=== PATIENT | male | born 1985 ===

== ENCOUNTER 2018-10-09 11:26 | Observation (INO) | payer MEDICAID ==
[2018-10-09] MEDS ORDERED: Magnesium Sulfate 2 gm/50 ml 2 GM/50 ML BAG IVPB ONE (11:31)
--- NOTE | 2018-10-09 11:31 | ED PDOC ---
Arrival/HPI - General Time Seen by Provider: 10/09/18 11:26 - History of Present Illness Narrative History of Present Illness (Text): 10/09/18 11:32 Patient is a 33 y/o M with hx of asthma, hx of intubation last at age 15, presenting with wheezing. Reports 4 day history of uri with productive cough and chills. Reports taking sudafed and benadryl without relief. Reports worsening sob starting last night. Reports using a "box" of nebulizers (approximately 40) without relief. Called 911 this morning who gave patient additional neb and solumedrol 125mg. Reports some improvement. Family/Social History Family/Social History: No Known Family HX Allergies/Home Meds Allergies/Adverse Reactions: Allergies diphenhydramine [From Benadryl Allergy] Allergy (Verified 10/09/18 11:30) ANAPHYLAXIS Review of Systems - Review of Systems Constitutional: Fevers. absent: Fatigue, Weight Change ENT: Rhinorrhea Respiratory: SOB, Cough, Sputum, Wheezing Cardiovascular: absent: Chest Pain, Palpitations, Edema, Calf Pain, DONOHUE, Orthopnea, Syncope Gastrointestinal: absent: Abdominal Pain, Constipation, Diarrhea, Nausea, Vomiting Genitourinary Male: absent: Dysuria Musculoskeletal: Arthralgias Skin: absent: Rash, Pruritis Neurological: absent: Headache, Dizziness, Focal Weakness, Gait Changes, Speech Changes Psychiatric: absent: Anxiety, Depression Physical Exam - Systems Exam Head: Present: Atraumatic, Normocephalic Pupils: Present: PERRL Extroacular Muscles: Present: EOMI Conjunctiva: Present: Normal Mouth: Present: Moist Mucous Membranes Nose (Internal): Present: Rhinorrhea Neck: Present: Normal Range of Motion. No: Meningeal Signs, MIDLINE TENDERNESS Respiratory/Chest: Present: Wheezes (expiratory), Other (speaking in complete sentences). No: Respiratory Distress, Accessory Muscle Use Cardiovascular: Present: Tachycardic Abdomen: No: Tenderness, Distention, Rebound, Guarding Upper Extremity: Present: Normal Inspection Lower Extremity: Present: Normal Inspection. No: Edema Psychiatric: Present: Alert, Oriented x 3, Normal Insight, Normal Concentration Medical Decision Making ED Course and Treatment: 10/09/18 11:35 Patient presenting with wheezing and sob. Will give duonebs and Mg. Will r/o pneumonia, assess for flu and reevaluate. 10/09/18 11:47 EKG shows sinus tachycardia at 135bpm with no st changes 10/09/18 12:36 Cxray negative 10/09/18 16:51 CTA ordered because patient has persistent tachycardia which he attributes to excessive albuterol use. CTA negative for PE 10/09/18 17:11 Persistently wheezing and tachycardic after 2L IVF. Accepted by Dr. Sorensen Disposition/Present on Arrival - Present on Arrival Any Indicators Present on Arrival: No - Disposition Have Diagnosis and Disposition been Completed?: Yes Diagnosis: Hepatic steatosis, Asthma, Tachycardia Disposition: HOSPITALIZED Disposition Time: 16:56 Patient Plan: Observation Patient Problems: Current Active Problems Problem Status Onset Hepatic steatosis Acute Asthma Acute Tachycardia Acute Condition: FAIR
[2018-10-09] MEDS ORDERED: Sodium Chloride 0.9% 1,000 ML IV STA ×2 (11:36→15:05)
[2018-10-09] MEDS: Albuterol-Ipratrop 3 mg / 0.5 (3 ml) UD IH SCH ×2 (12:10→14:34)
--- NOTE | 2018-10-09 12:18 | RAD ---
Date of service: 10/09/2018 HISTORY: cough COMPARISON: No prior. TECHNIQUE: 1 view obtained. FINDINGS: LUNGS: No active pulmonary disease. PLEURA: No significant pleural effusion identified, no pneumothorax apparent. CARDIOVASCULAR: No aortic atherosclerotic calcification present. Normal cardiac size. No pulmonary vascular congestion. OSSEOUS STRUCTURES: No significant abnormalities. VISUALIZED UPPER ABDOMEN: Normal. OTHER FINDINGS: None. IMPRESSION: No active disease.
[2018-10-09 12:25] LABS: BASO # 0.04 K/mm3 (0.0-2.0); BASO % 0.7 % (0.0-3.0); EOS # 0.2 (0.0-0.7); EOS % 2.6 % (1.5-5.0); HEMOGLOBIN 15.5 g/dL (14.0-18.0); LYMPH # 1.2 (1.2-3.4); LYMPH % 20.4 % (22.0-35.0); MEAN CELL VOLUME 84.6 fl (80.0-105.0); MEAN CORPUSCULAR HGB CONC 34.3 g/dl (31.0-37.0); MEAN PLATELET VOLUME 9.9 fl (7.0-11.0); MONO # 0.5 (0.1-0.6); MONO % 8.4 % (1.0-6.0); RBC 5.34 10^6/uL (3.5-6.1); RED CELL DISTRIBUTION WIDTH 13.2 % (11.5-14.5)
[2018-10-09 12:29] LABS: ALB/GLOB RATIO 1.4 (1.1-1.8); ALBUMIN 4.7 g/dL (3.0-4.8); ALT/SGPT 175 U/L (7-56); AST/SGOT 77 U/L (17-59); BLOOD UREA NITROGEN 9 mg/dL (7-21); CALCIUM 9.4 mg/dL (8.4-10.5); GFR NON-AFRICAN AMERICAN > 60
--- NOTE | 2018-10-09 16:52 | CT ---
Date of service: 10/09/2018 PROCEDURE: CT Chest with contrast (Pulmonary Angiogram) HISTORY: tachycardic,, cp COMPARISON: October 09, 2018. Single-view chest TECHNIQUE: Axial computed tomography images were obtained of the chest in the pulmonary arterial phase of enhancement. Coronal and sagittal reformatted images were created and reviewed. Intravenous contrast dose: 150 cc Omnipaque 350. Mean Hounsfield value in the main pulmonary artery: 227.01 Radiation dose: Total exam DLP = 550.60 mGy-cm. This CT exam was performed using one or more of the following dose reduction techniques: Automated exposure control, adjustment of the mA and/or kV according to patient size, and/or use of iterative reconstruction technique. FINDINGS: PULMONARY ARTERIES: Unremarkable. No pulmonary embolism. AORTA: No acute findings. No thoracic aortic aneurysm. No atherosclerotic calcification or mural plaque present. LUNGS: Unremarkable. No nodule, mass or pulmonary consolidation. PLEURAL SPACES: Unremarkable. No effusion or pneumothorax. HEART: Unremarkable. No cardiomegaly. No significant pericardial effusion. LYMPH NODES: No lymphadenopathy. BONES, CHEST WALL: Unremarkable. No fracture or destructive lesion OTHER FINDINGS: Profound hepatic steatosis, the liver however is incompletely visible. IMPRESSION: Unremarkable CT pulmonary angiogram. No pulmonary embolus.
--- NOTE | 2018-10-09 17:06 | CARD ---
APPROVED REPORT Date of service: 10/09/2018 EKG Measurement Heart [id number] CT [id number] [id number] <Conclusion> Sinus tachycardia Otherwise normal ECG
[2018-10-09] MEDS ORDERED: Albuterol-Ipratrop 3 mg / 0.5 (3 ml) UD IH STA (17:11)
[2018-10-09] MEDS ORDERED: Levalbuterol 1.25 MG/3 ML Inhal Soln UD IH PRN (18:19)
--- NOTE | 2018-10-09 18:35 | CP.PCM.HP ---
<Sergei Peñaloza - Last Filed: 10/09/18 19:00> History of Present Illness - History of Present Illness History of Present Illness: PGY-1 Medicine H&P for Dr. Gibbons CC: Asthma exacerbation Patient is a 33 year old obese male with a past medical history of asthma and current tobacco use presenting with shortness of breath. Patient states that he has been short of breath for the past 4 days that required him to be using his Albuterol nebulizer throughout the day and waking him up at night. He also states that for the past for days he has been having a cough, runny nose, watery eyes, and muscle aches. He describes the cough to be productive with green sputum. Patient had been using his nebulizer many times and took Claritin with not much relief. He states that he was diagnosed with Asthma since he was a child and had a history of being intubated at age 15. He states that he was ad mitted for asthma exacerbation 4-5 times in the last 18 months at [facility] in the [facility]. He states that he used to be on Breo which helped control his asthma but his current PMD discontinued it because his asthma was under control. He denies recent travel or sick contacts. He further denies fevers, chills, chest pain, abdominal pain, nausea, vomiting, diarrhea, or urinary symptoms. 12 system ROS reviewed and negative except mentioned in HPI. PMHx: Asthma, obesity, and tobacco abuse PSHx: Ganglion cyst removal on left hand. Allergies: Benadryl-anaphylaxis. Family Hx: Mother has asthma and HTN. Brother and sister have asthma. Social Hx: Smoked 1 PPD since age 14, currently smokes 10 cigarettes every 3 days. Denies alcohol and drug use. 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 PMD: Dr. Burroughs in [facility] but is switching due change of insurance Present on Admission - Present on Admission Any Indicators Present on Admission: No History of DVT/PE: No History of Uncontrolled Diabetes: No Urinary Catheter: No Decubitus Ulcer Present: No Past Patient History - Past Social History Smoking Status: Light Smoker < 10 Cigarettes Daily - PSYCHIATRIC Hx Substance Use: No - SURGICAL HISTORY Hx Surgeries: Yes (R wrist ganglion cyst) - ANESTHESIA Hx Anesthesia: Yes Hx Anesthesia Reactions: No Hx Malignant Hyperthermia: No Meds Allergies/Adverse Reactions: Allergies Allergy/AdvReac Type Severity Reaction Status Date / Time diphenhydramine Allergy ANAPHYLAXIS Verified 10/09/18 11:30 [From Benadryl Allergy] Physical Exam - Constitutional Appears: Well, Non-toxic, No Acute Distress - Head Exam Head Exam: ATRAUMATIC, NORMAL INSPECTION - Eye Exam Eye Exam: EOMI, Normal appearance - ENT Exam ENT Exam: Mucous Membranes Moist - Respiratory Exam Respiratory Exam: Wheezes. absent: Accessory Muscle Use, Clear to Auscultation Bilateral, Rales, Rhonchi, Respiratory Distress Additional comments: Expiratory wheezes heard bilaterally - Cardiovascular Exam Cardiovascular Exam: Tachycardia, +S1, +S2. absent: Gallop, Rubs, Systolic Murmur - GI/Abdominal Exam GI & Abdominal Exam: Normal Bowel Sounds, Soft. absent: Tenderness Additional comments: Patient is obese, gynecomastia noted - Extremities Exam Extremities exam: Positive for: normal inspection. Negative for: calf tenderness, tenderness - Neurological Exam Neurological exam: Alert, CN II-XII Intact, Oriented x3 - Psychiatric Exam Psychiatric exam: Normal Affect, Normal Mood - Skin Skin Exam: Dry, Normal Color, Warm Results - Vital Signs Recent Vital Signs: Last Vital Signs Temp 98.6 F 10/09/18 11:27 Pulse 133 H 10/09/18 17:25 Resp 20 10/09/18 17:25 BP 120/71 10/09/18 17:25 Pulse Ox 98 10/09/18 17:25 - Labs Result Diagrams: 10/09/18 11:58 10/09/18 11:58 Labs: Laboratory Results - last 24 hr 10/09/18 10/09/18 10/09/18 11:58 11:58 12:37 WBC 6.0 RBC 5.34 Hgb 15.5 Hct 45.2 MCV 84.6 MCH 29.0 MCHC 34.3 RDW 13.2 Plt Count 220 MPV 9.9 Neut % (Auto) 67.9 Lymph % (Auto) 20.4 L [place] % (Auto) 8.4 H Eos % (Auto) 2.6 Baso % (Auto) 0.7 Lymph # (Auto) 1.2 [place] # (Auto) 0.5 Eos # (Auto) 0.2 Baso # (Auto) 0.04 Absolute Neuts (auto) 4.10 Sodium 138 Potassium 4.0 Chloride 102 Carbon Dioxide 25 Anion Gap 15 BUN 9 Creatinine 0.8 Est GFR ( Amer) > 60 Est GFR (Non-Af Amer) > 60 Random Glucose 125 H Calcium 9.4 Total Bilirubin 1.0 AST 77 H ALT 175 H Alkaline Phosphatase 84 Total Protein 8.0 Albumin 4.7 Globulin 3.4 Albumin/Globulin Ratio 1.4 Influenza Typ A,B (EIA) Negative for flu a/b Assessment & Plan - Assessment and Plan (Free Text) Assessment: Patient is a 33 year old obese male with a past medical history of asthma and current tobacco use, admitted for asthma exacerbation. Plan: Asthma exacerbation - CXR: no acute disease - Patient's O2 saturation is 98% on room air - Brovana IH Q12 - Pulmicort IH Q12 - Ipratropium IH Q6 - Xopenex Q6 VERA and Q2 PRN - Solumedrol 60mg IV Q8 - Singulair 10mg PO HS - Influenza: negative - In ED was given 125mg solumedrol and Magnesium sulfate Sinus tachycardia - Likely 2/2 Albuterol use - EKG: Sinus tachycardia @ 135 bpm, no ST changes - Chest CTA: Negative for PE. Hepatic steatosis. - Metoprolol 5mg IV Q6 PRN for HR >150 - Monitor on Telemetry Transaminitis - Chest CTA showed findings of hepatic steatosis - Lipid Panel, HbA1C: pending - Counseled patient for weight loss - Continue to monitor Tobacco abuse disorder - Counseled patient on smoking cessation Prophylaxis: - DVT: SCD's Patient seen and case discussed with attending, Dr. Gibbons. Sergei Peñaloza, PGGY-1 <Fede Gibbons - Last Filed: 10/10/18 08:34> Results - Vital Signs Recent Vital Signs: Last Vital Signs Temp 98 F 10/10/18 08:04 Pulse 117 H 10/10/18 08:04 Resp 18 10/10/18 08:04 BP 130/79 10/10/18 08:04 Pulse Ox 96 10/10/18 08:04 - Labs Result Diagrams: 10/10/18 06:10 10/10/18 06:10 Labs: Laboratory Results - last 24 hr 10/09/18 10/09/18 10/09/18 11:58 11:58 11:58 WBC 6.0 RBC 5.34 Hgb 15.5 Hct 45.2 MCV 84.6 MCH 29.0 MCHC 34.3 RDW 13.2 Plt Count 220 MPV 9.9 Neut % (Auto) 67.9 Lymph % (Auto) 20.4 L [place] % (Auto) 8.4 H Eos % (Auto) 2.6 Baso % (Auto) 0.7 Lymph # (Auto) 1.2 [place] # (Auto) 0.5 Eos # (Auto) 0.2 Baso # (Auto) 0.04 Absolute Neuts (auto) 4.10 Sodium 138 Potassium 4.0 Chloride 102 Carbon Dioxide 25 Anion Gap 15 BUN 9 Creatinine 0.8 Est GFR ( Amer) > 60 Est GFR (Non-Af Amer) > 60 Random Glucose 125 H Calcium 9.4 Phosphorus Magnesium Total Bilirubin 1.0 AST 77 H ALT 175 H Alkaline Phosphatase 84 Total Protein 8.0 Albumin 4.7 Globulin 3.4 Albumin/Globulin Ratio 1.4 Triglycerides 381 H Cholesterol 242 H LDL Cholesterol Direct 149 H HDL Cholesterol 30 TSH 3rd Generation Influenza Typ A,B (EIA) 10/09/18 10/10/18 10/10/18 12:37 06:10 06:10 WBC 7.0 RBC 4.99 Hgb 14.3 Hct 42.2 MCV 84.6 MCH 28.7 MCHC 33.9 RDW 13.2 Plt Count 254 MPV 10.2 Neut % (Auto) 79.2 H Lymph % (Auto) 13.4 L [place] % (Auto) 7.3 H Eos % (Auto) 0.0 L Baso % (Auto) 0.1 Lymph # (Auto) 0.9 L [place] # (Auto) 0.5 Eos # (Auto) 0.0 Baso # (Auto) 0.01 Absolute Neuts (auto) 5.50 Sodium 133 Potassium 4.5 Chloride 101 Carbon Dioxide 22 Anion Gap 15 BUN 9 Creatinine 0.7 L Est GFR ( Amer) > 60 Est GFR (Non-Af Amer) > 60 Random Glucose 263 H Calcium 9.4 Phosphorus 2.1 L Magnesium 2.2 Total Bilirubin 0.6 AST 129 H D ALT 217 H Alkaline Phosphatase 82 Total Protein 7.7 Albumin 4.5 Globulin 3.2 Albumin/Globulin Ratio 1.4 Triglycerides Cholesterol LDL Cholesterol Direct HDL Cholesterol TSH 3rd Generation Influenza Typ A,B (EIA) Negative for flu a/b 10/10/18 07:10 WBC RBC Hgb Hct MCV MCH MCHC RDW Plt Count MPV Neut % (Auto) Lymph % (Auto) [place] % (Auto) Eos % (Auto) Baso % (Auto) Lymph # (Auto) [place] # (Auto) Eos # (Auto) Baso # (Auto) Absolute Neuts (auto) Sodium Potassium Chloride Carbon Dioxide Anion Gap BUN Creatinine Est GFR ( Amer) Est GFR (Non-Af Amer) Random Glucose Calcium Phosphorus Magnesium Total Bilirubin AST ALT Alkaline Phosphatase Total Protein Albumin Globulin Albumin/Globulin Ratio Triglycerides Cholesterol LDL Cholesterol Direct HDL Cholesterol TSH 3rd Generation 0.49 Influenza Typ A,B (EIA) Attending/Attestation - Attestation I have personally seen and examined this patient.: Yes I have fully participated in the care of the patient.: Yes I have reviewed all pertinent clinical information: Yes Notes (Text): Patient seen and examined with the residents, agree with above. Noted to have worsening sob attributed to asthma exacerbation for the past few days not resolved with nebs treatments at home. Symptoms consistent with moderate persistent asthma - not taking any LABA or inhaled corticosteroid given the fact patient just moved and is yet to establish a PMD. Noted to have diffuse expiratory wheezing on exam, no respiratory distress or accessory muscle use. Continue with current treatment including nebs/steroids/pulmicort and brovana. Will need inhaler such as Symbicort, Advair or Breo on discharge.
[2018-10-09 19:07] LABS: HDL CHOLESTEROL 30 mg/dL (29-60)
[2018-10-09] MEDS ORDERED: Metoprolol 1 mg/ml Inj IVP PRN (19:12)
[2018-10-09 19:17] LABS: LDL CHOLESTEROL 149 mg/dL (0-129)
[2018-10-09] MEDS: Budesonide 0.5 mg/2 ml Inhal Susp UD IH SCH (19:42)
[2018-10-09] MEDS: Ipratropium 0.02% Inhal Soln (0.5 mg/2.5 ml) UD IH SCH (19:42)
[2018-10-09] MEDS: Arformoterol 15 mcg/2 ml Inh Sol IH SCH (19:42)
[2018-10-09] MEDS: Levalbuterol 1.25 MG/3 ML Inhal Soln UD IH SCH (19:42)
[2018-10-09 20:44] VITALS: BMI 33.4
[2018-10-10] MEDS: Levalbuterol 1.25 MG/3 ML Inhal Soln UD IH SCH ×2 (02:50→08:05)
[2018-10-10] MEDS: Ipratropium 0.02% Inhal Soln (0.5 mg/2.5 ml) UD IH SCH ×3 (02:50→13:48)
[2018-10-10] MEDS ORDERED: guaiFENesin 600 mg ER Tab PO ONE (06:02)
[2018-10-10 06:52] LABS: BASO # 0.01 K/mm3 (0.0-2.0); BASO % 0.1 % (0.0-3.0); HEMOGLOBIN 14.3 g/dL (14.0-18.0); LYMPH # 0.9 (1.2-3.4); LYMPH % 13.4 % (22.0-35.0); MEAN CELL VOLUME 84.6 fl (80.0-105.0); MEAN CORPUSCULAR HEMOGLOBIN 28.7 pg (25.0-35.0); MEAN CORPUSCULAR HGB CONC 33.9 g/dl (31.0-37.0); MEAN PLATELET VOLUME 10.2 fl (7.0-11.0); MONO # 0.5 (0.1-0.6); MONO % 7.3 % (1.0-6.0); RBC 4.99 10^6/uL (3.5-6.1); RED CELL DISTRIBUTION WIDTH 13.2 % (11.5-14.5)
[2018-10-10 07:42] LABS: ALB/GLOB RATIO 1.4 (1.1-1.8); ALBUMIN 4.5 g/dL (3.0-4.8); ALT/SGPT 217 U/L (7-56); AST/SGOT 129 U/L (17-59); BLOOD UREA NITROGEN 9 mg/dL (7-21); CALCIUM 9.4 mg/dL (8.4-10.5); GFR NON-AFRICAN AMERICAN > 60
[2018-10-10] MEDS: Budesonide 0.5 mg/2 ml Inhal Susp UD IH SCH (08:00)
[2018-10-10] MEDS: Arformoterol 15 mcg/2 ml Inh Sol IH SCH (08:01)
[2018-10-10 08:05] VITALS: BP 130/79; RESP 18; TEMP 98; O2SAT 96
[2018-10-10] MEDS ORDERED: Iohexol 240 (50 ml) ONE (09:21)
--- NOTE | 2018-10-10 11:42 | US ---
Date of service: 10/10/2018 HISTORY: ?steatosis, transaminitis COMPARISON: None. TECHNIQUE: Sonographic evaluation of the abdomen. FINDINGS: LIVER: Measures 20.7 cm. Increased echogenicity of the liver parenchyma. No mass. No intrahepatic bile duct dilatation. GALLBLADDER: Unremarkable. No gallstones. COMMON BILE DUCT: Measures 4 mm. No stones. No dilatation. PANCREAS: Unremarkable as visualized. No mass. No ductal dilatation. RIGHT KIDNEY: Measures 11.6 x 5.3 x 5.6cm. Normal echogenicity. No calculus, mass, or hydronephrosis. LEFT KIDNEY: Measures 11.5 x 5.1 x 6.3cm. Normal echogenicity. No calculus, mass, or hydronephrosis. SPLEEN: Normal in size and contour. No mass. 14.4 x 5.0 x 5.1 AORTA: No aneurysmal dilatation. IVC: Unremarkable. OTHER FINDINGS: None. IMPRESSION: Diffuse fatty infiltration of the liver
[2018-10-10 12:56] LABS: HEPATITIS B SURFACE AG Negative (NEGATIVE)
[2018-10-10 13:02] LABS: HEPATITIS A IGM NEGATIVE (NEGATIVE); HEPATITIS B CORE AB NEGATIVE (NEGATIVE)
[2018-10-10 13:13] LABS: HEPATITIS C ANTIBODY NEGATIVE (NEGATIVE)
--- NOTE | 2018-10-10 15:34 | CP.PCM.DIS ---
Provider - Provider Date of Admission: 10/09/18 16:55 Attending physician: Clive Sorensen MD Time Spent in preparation of Discharge (in minutes): 45 Hospital Course - Lab Results Lab Results: Most Recent Lab Values WBC 7.0 10^3/uL (4.5-11.0) 10/10/18 06:10 RBC 4.99 10^6/uL (3.5-6.1) 10/10/18 06:10 Hgb 14.3 g/dL (14.0-18.0) 10/10/18 06:10 Hct 42.2 % (42.0-52.0) 10/10/18 06:10 MCV 84.6 fl (80.0-105.0) 10/10/18 06:10 MCH 28.7 pg (25.0-35.0) 10/10/18 06:10 MCHC 33.9 g/dl (31.0-37.0) 10/10/18 06:10 RDW 13.2 % (11.5-14.5) 10/10/18 06:10 Plt Count 254 10^3/uL (120.0-450.0) 10/10/18 06:10 MPV 10.2 fl (7.0-11.0) 10/10/18 06:10 Neut % (Auto) 79.2 % (50.0-68.0) H 10/10/18 06:10 Lymph % (Auto) 13.4 % (22.0-35.0) L 10/10/18 06:10 [place] % (Auto) 7.3 % (1.0-6.0) H 10/10/18 06:10 Eos % (Auto) 0.0 % (1.5-5.0) L 10/10/18 06:10 Baso % (Auto) 0.1 % (0.0-3.0) 10/10/18 06:10 Lymph # (Auto) 0.9 (1.2-3.4) L 10/10/18 06:10 [place] # (Auto) 0.5 (0.1-0.6) 10/10/18 06:10 Eos # (Auto) 0.0 (0.0-0.7) 10/10/18 06:10 Baso # (Auto) 0.01 K/mm3 (0.0-2.0) 10/10/18 06:10 Absolute Neuts (auto) 5.50 (1.4-6.5) 10/10/18 06:10 Sodium 133 mmol/L (132-148) 10/10/18 06:10 Potassium 4.5 mmol/L (3.6-5.0) 10/10/18 06:10 Chloride 101 mmol/L (98-107) 10/10/18 06:10 Carbon Dioxide 22 mmol/L (21-33) 10/10/18 06:10 Anion Gap 15 (10-20) 10/10/18 06:10 BUN 9 mg/dL (7-21) 10/10/18 06:10 Creatinine 0.7 mg/dl (0.8-1.5) L 10/10/18 06:10 Est GFR ( Amer) > 60 10/10/18 06:10 Est GFR (Non-Af Amer) > 60 10/10/18 06:10 Random Glucose 263 mg/dL (70-110) H 10/10/18 06:10 Hemoglobin A1c 6.4 % (4.2-6.5) 10/09/18 11:58 Calcium 9.4 mg/dL (8.4-10.5) 10/10/18 06:10 Phosphorus 2.1 mg/dL (2.5-4.5) L 10/10/18 06:10 Magnesium 2.2 mg/dL (1.7-2.2) 10/10/18 06:10 Total Bilirubin 0.6 mg/dL (0.2-1.3) 10/10/18 06:10 AST 129 U/L (17-59) H D 10/10/18 06:10 ALT 217 U/L (7-56) H 10/10/18 06:10 Alkaline Phosphatase 82 U/L (38-126) 10/10/18 06:10 Total Protein 7.7 g/dL (5.8-8.3) 10/10/18 06:10 Albumin 4.5 g/dL (3.0-4.8) 10/10/18 06:10 Globulin 3.2 gm/dL 10/10/18 06:10 Albumin/Globulin Ratio 1.4 (1.1-1.8) 10/10/18 06:10 Triglycerides 381 mg/dL (35-160) H 10/09/18 11:58 Cholesterol 242 mg/dL (130-200) H 10/09/18 11:58 LDL Cholesterol Direct 149 mg/dL (0-129) H 10/09/18 11:58 HDL Cholesterol 30 mg/dL (29-60) 10/09/18 11:58 TSH 3rd Generation 0.49 mIU/mL (0.46-4.68) 10/10/18 07:10 Hepatitis A IgM Ab Negative (NEGATIVE) 10/10/18 07:10 Hep Bs Antigen Negative (NEGATIVE) 10/10/18 07:10 Hep B Core IgM Ab Negative (NEGATIVE) 10/10/18 07:10 Hepatitis C Antibody Negative (NEGATIVE) 10/10/18 07:10 Influenza Typ A,B (EIA) Negative for flu a/b (NEGATIVE) 10/09/18 12:37 - Hospital Course Hospital Course: Upon Admission: 33 year old obese male with a past medical history of asthma and current tobacco use presenting with shortness of breath. Patient states that he has been short of breath for the past 4 days that required him to be using his Albuterol nebulizer throughout the day and waking him up at night. He also states that for the past for days he has been having a cough, runny nose, watery eyes, and muscle aches. He describes the cough to be productive with green sputum. Patient had been using his nebulizer many times and took Claritin with not much relief. He states that he was diagnosed with Asthma since he was a child and had a history of being intubated at age 15. He states that he was admitted for asthma exacerbation 4-5 times in the last 18 months at [facility] in the [facility]. He states that he used to be on Breo which helped control his asthma but his current PMD discontinued it because his asthma was under control. Hospital Course:. Pt was treated with duoneb, mucinex, mg and given 2L fluids in ED. Imaging ruled out PE d/t tachycardia. Pt was admitted to floors. Pt's wheezing had significantly improved. Pt reported he was using his duoneb inhalers several times at home, and contributed to his tachycardia. Pt was given solu-medrol IVP to aid in wheezing. Pt was found to have transaminitis. Abd u/s results below. Pt instructed on weight loss, heart healthy & diabetic diet. Pt to be managed initially conservatively with diet and lifestyle modifications. Appointment was made for pt at [facility] for close followup. Pt was given Breo, Albuterol, Montelukast and prednisone taper at bedside. Upon Discharge: Pt is feeling better. Wheezing has improved. His hemodynamically stable. VSS. He was given prescriptions for inhalers at home as well as prednisone taper. Appointment made for pt in [facility]. Abdomen U/S: Diffuse fatty infiltration of the liver CTA: Unremarkable CT pulmonary angiogram. No pulmonary embolus CXR: No active disease Hgb A1c 6.4 Lipid Panel: Tri, Chol: 242 LDL: 149 Discharge Exam - Head Exam Head Exam: ATRAUMATIC, NORMAL INSPECTION - Eye Exam Eye Exam: EOMI, Normal appearance - ENT Exam ENT Exam: Mucous Membranes Moist - Neck Exam Neck exam: Normal Inspection - Respiratory Exam Respiratory Exam: NORMAL BREATHING PATTERN, UNREMARKABLE - Cardiovascular Exam Cardiovascular Exam: REGULAR RHYTHM, +S1 - GI/Abdominal Exam GI & Abdominal Exam: Normal Bowel Sounds, Unremarkable - Extremities Exam Extremities exam: normal inspection - Back Exam Back exam: NORMAL INSPECTION - Neurological Exam Neurological exam: Alert, Oriented x3 - Psychiatric Exam Psychiatric exam: Normal Affect, Normal Mood - Skin Skin Exam: Dry, Intact, Warm Discharge Plan - Discharge Medications Prescriptions: Fluticasone/Vilanterol 100/25 [Breo Ellipta 100-25 MCG INH] 2 puff IH DAILY #1 inhaler predniSONE [predniSONE Tab] See Taper PO Q2D 6 Days #21 tab - Follow Up Plan Condition: STABLE Disposition: HOME/ ROUTINE Instructions: Asthma in Adults, Asthma, Adult (DC), Sinus Tachycardia (DC), Nonalcoholic Fatty Liver Disease (DC), Obesity, Adult (DC), Prediabetes (DC), Asthma (DC) Additional Instructions: Please follow up with your primary care doctor within 3-5 days of discharge from the hospital You have an appointment at the [facility] on 10/17/18 at 2:30pm. Please arrive to your appointment at least 15 minutes early. Please bring photo ID and your insurance card with you to your appointment. Please bring your medications with you to your appointment. Please continue taking the medications that your were given in the hospital You were started on a Prednisone taper. Please take this medication as directed on the instructions Please continue taking your inhalers as prescribed Please continue drinking water, please avoid sugary drinks. Please discuss your medications, and request refills with your primary care doctor Please be mindful of your diet. Please consume a heart healthy, low cholesterol diet. If your symptoms return or you experience new symptoms, please return to the nearest emergency room Referrals: [facility] [Outside]
[2018-10-10] MEDS ORDERED: Pneumococcal 23-Valent Vaccine IM ONE (16:10)
[2018-10-10 18:22] VITALS: PULSE 119
== END 2018-10-10 17:16 | disposition home or self-care (01) ==
LOC: ED 11:26 → ERH 16:55 → 3RNO 18:10
PROVIDERS: ADMIT Internal Medicine; ATTEND Internal Medicine
DX: J45.41 Moderate persistent asthma with (acute) exacerbation (principal); F17.210 Nicotine dependence, cigarettes, uncomplicated; K76.0 Fatty (change of) liver, not elsewhere classified; R00.0 Tachycardia, unspecified; E66.9 Obesity, unspecified; Z68.33 Body mass index [BMI] 33.0-33.9, adult; Z23 Encounter for immunization; Z82.5 Family history of asthma and other chronic lower respiratory diseases; Z82.49 Family history of ischemic heart disease and other diseases of the circulatory system
CPT/HCPCS: 36415; 71045; 71275; 76700; 80053; 80061; 80074; 83036; 83735; 84100; 84443; 85025; 87389; 87804; 90471; 90732; 93005; 94640; 99285; G0378; J2930; J7030; Q9966; Q9967